=== PATIENT | male | born 1955 | race Caucasian/White ===

== ENCOUNTER 2018-09-03 01:36 | Outpatient (CLI) | payer BC, SELFPAY ==
[2018-09-03 10:47] LABS: ALT 22 U/L (12-78); AST 19 U/L (15-37); Albumin 3.8 g/dL (3.4-5.0); Alkaline Phosphatase 139 U/L (46-116); Anion Gap 8.8 mmol/L (3-11); BUN 15 mg/dL (7-18); CO2 27.2 mmol/L (21.0-32.0); CREATININE 1.35 mg/dL (0.70-1.30); Calcium 8.8 mg/dL (8.5-10.1); Chloride 103 mmol/L (98-107); Cholesterol 188 mg/dL (50-200); Estimated GFR 53.04 (mL/min/1.73m2); Glucose 118 mg/dL (70-100); HDL Cholesterol 36 mg/dL (40-60); LDL CHOLESTEROL 120 mg/dL (<100); Potassium 4.5 mmol/L (3.5-5.1); Sodium 139 mmol/L (136-145); Total Protein 7.4 g/dL (6.4-8.2); Triglyceride 146 mg/dL (30-150)
[2018-09-04 11:42] LABS: Hemoglobin A1C 6.6 % (4.5-6.2)
== END 2018-09-03 01:56 ==
PROVIDERS: PCP Family Medicine; Visit Provider Family Medicine
DX: E78.5 Hyperlipidemia, unspecified (principal); R73.01 Impaired fasting glucose; Z00.00 Encounter for general adult medical examination without abnormal findings
CPT/HCPCS: 36415; 80053; 80061; 83721; 83036

== ENCOUNTER 2018-10-14 12:40 | Outpatient (CLI) | payer BC, SELFPAY ==
--- NOTE | 2018-10-14 12:30 | DIABASSESS_ITS ---
DESCRIPTION/ASSESSMENT: Mr. Jang presents for Medical Nutrition Therapy for diabetes. Food Guidelines - He has stopped drinking 7-8 sodas a day now drinking coke 0. He has sausage mcmuffin for breakfast, crackers and peanut butter between meals; steak and macaroni for supper last night. He could list vegetables he likes. He has never been a big eater. Denies being a sweet eater. BMI 25 Physical Activity - He enjoys golf and hunting; he rides his motorcycle in the summer, but does not have winter activity. 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 Medication - no medication at this time Risks/Related health history - he reports a history of TIAs that he fully recovered from. Coping - from living alone. Denies depression. INTERVENTION: Mr. Jang believes he has solved his diabetes problem by cutting out sugar. Encouraged early, intensive intervention for preventative results. Food Guidelines - Reviewed diabetes food guide focused on carbohydrate sources and vegetables. He does not read labels but encouraged him to consider carbohydrate rather than sugar. Physical Activity - discussed walking daily and he believes this is possible. Monitoring - discussed A1c and diagnosis of diabetes. Discussed his pre-diabetes condition for past 4 years and what changed. Random blood sugar today 122mg/dl 4 hours after breakfast. Discussed the significance of this and its relation to his food intake. ACTION PLAN: Mr. Jang will continue to avoid sugar sweetened beverages; increase vegetables to include a serving every day Walk as able daily until he is able to do activities he enjoys He knows to call with questions or concerns. Individual MNT __3__ units billed TIME IN: 1230 OUT: 1320 No DM group education series being offered at this time.
== END 2018-10-14 13:00 ==
PROVIDERS: PCP Family Medicine; Visit Provider Dietitian, Registered
DX: E11.9 Type 2 diabetes mellitus without complications (principal); Z71.3 Dietary counseling and surveillance
CPT/HCPCS: 97802

== ENCOUNTER 2018-12-10 03:55 | Outpatient (CLI) | payer BC, SELFPAY ==
[2018-12-10 10:42] LABS: Anion Gap 8.8 mmol/L (3-11); BUN 16 mg/dL (7-18); CO2 27.2 mmol/L (21.0-32.0); CREATININE 1.19 mg/dL (0.70-1.30); Calcium 8.8 mg/dL (8.5-10.1); Chloride 103 mmol/L (98-107); Glucose 120 mg/dL (70-100); Potassium 4.2 mmol/L (3.5-5.1); Sodium 139 mmol/L (136-145)
[2018-12-11 10:26] LABS: Hemoglobin A1C 6.4 % (4.5-6.2)
== END 2018-12-10 04:15 ==
PROVIDERS: PCP Family Medicine; Visit Provider Family Medicine
DX: E11.9 Type 2 diabetes mellitus without complications (principal)
CPT/HCPCS: 36415; 80048; 83036

== ENCOUNTER 2019-06-10 01:22 | Outpatient (CLI) | payer BC, SELFPAY ==
[2019-06-10 09:48] LABS: HCT 46.8 % (40.0-50.0); HGB 14.9 g/dL (13.5-17.5); Mean Corp. HGB Concentration 31.8 g/dL (32.0-36.0); Mean Corpuscular Hemoglobin 28.9 pg (27.0-33.0); Mean Corpuscular Volume 90.7 fL (80-95); Mean Platelet Volume 10.3 fL (8.0-11.0); Platelet Count 206 x1000/uL (130-400); RBC 5.16 m/cumm (4.50-6.00); RBC Distribution Width 13.8 % (11.8-14.1); White Blood Cell Count 5.46 k/cumm (4.4-10.8)
[2019-06-10 11:18] LABS: ALT 29 U/L (16-63); AST 13 U/L (15-37); Albumin 3.9 g/dL (3.4-5.0); Alkaline Phosphatase 90 U/L (46-116); Anion Gap 8.8 mmol/L (3-11); BUN 21 mg/dL (7-18); Bilirubin, Total 0.6 mg/dL (0.2-1.0); CO2 28.2 mmol/L (21.0-32.0); CREATININE 1.32 mg/dL (0.70-1.30); Calcium 8.8 mg/dL (8.5-10.1); Calculated LDL 103 mg/dL; Chloride 105 mmol/L (98-107); Cholesterol 156 mg/dL (<200); Estimated GFR 54.43 (mL/min/1.73m2); Glucose 100 mg/dL (74-106); HDL Cholesterol 39 mg/dL (40-60); Potassium 4.5 mmol/L (3.5-5.1); Sodium 142 mmol/L (136-145); Total Protein 7.1 g/dL (6.4-8.2); Triglyceride 70 mg/dL (<150)
[2019-06-11 09:23] LABS: Hemoglobin A1C 6.3 % (4.5-6.2)
== END 2019-06-10 01:42 ==
PROVIDERS: PCP Family Medicine; Visit Provider Family Medicine
DX: E78.5 Hyperlipidemia, unspecified (principal); E11.9 Type 2 diabetes mellitus without complications; G45.9 Transient cerebral ischemic attack, unspecified
CPT/HCPCS: 36415; 80053; 80061; 85027; 83036

== ENCOUNTER 2019-07-21 01:56 | Outpatient (CLI) | payer BC, SELFPAY ==
--- NOTE | 2019-07-21 13:45 | DI.US_ITS ---
APPROVED REPORT EXAM: Comprehensive 2D, Doppler, and color-flow Echocardiogram Patient Location: Out-Patient Physical Therapy Nurse: Jes Chacon RDCS (AE) Indications: Aortic Stenosis Conclusion Left Ventricle : The left ventricle is normal size. The left ventricular systolic function is normal . There is normal left ventricular wall thickness. There is normal LV segmental wall motion. The le ft ventricular diastolic function is normal. LVEF is 50-54%. Right Ventricle : The right ventricular systolic function is normal. The right ventricle is normal si ze. Atria : The left atrium size is normal. The right atrium size is normal. Aortic Valve : Aortic valve is calcified. Aortic valve is trileaflet. Mild aortic regurgitation. Mild aortic stenosis (mean gradient is 11mmHg). Mitral Valve : The mitral valve is normal in structure. There is mitral annular calcification. Trace mitral regurgitation. No evidence of mitral valve stenosis. Tricuspid Valve : The tricuspid valve is normal in structure. Mild tricuspid regurgitation. There is no tricuspid valve stenosis. Pulmonic Valve : Pulmonic valve is not well visualized. Great Vessels : The aortic root size is normal. Descending aorta is not well visualized. Aortic arch is not well visualized. The IVC is normal in size and collapses >50% with inspiration. Estimated RVSP is 19-22 mmHg. Compared to echocardiogram dated 07/09/2017: The patient's ejection fraction has decreased slightly but is still within the normal range. Wall motion Left Ventricle The left ventricle is normal size. The left ventricular systolic function is normal. There is normal left ventricular wall thickness. There is normal LV segmental wall motion. The left ventricular diast olic function is normal. LVEF is 50-54%. Right Ventricle The right ventricle is normal size. The right ventricular systolic function is normal. Atria The left atrium size is normal. The right atrium size is normal. Aortic Valve Aortic valve is calcified. Aortic valve is trileaflet. Mild aortic stenosis (mean gradient is 11 mmHg ). Mild aortic regurgitation. Mitral Valve The mitral valve is normal in structure. There is mitral annular calcification. No evidence of mitral valve stenosis. Trace mitral regurgitation. Tricuspid Valve The tricuspid valve is normal in structure. There is no tricuspid valve stenosis. Mild tricuspid regu rgitation. Pulmonic Valve Pulmonic valve is not well visualized. There is no pulmonic valvular stenosis. There is no pulmonic v alvular regurgitation. Great Vessels The aortic root size is normal. Descending aorta is not well visualized. Aortic arch is not well visu alized. The IVC is normal in size and collapses >50% with inspiration. Estimated RVSP is 19-22 mmHg. Pericardium There is no pericardial effusion. There is no pleural effusion. 2D Dimensions IVSd 0.80 cm M: 0.6-1.2 LV EDV A2C 41.4 mL PWd 0.85 cm M: 0.6 - 1.2 LV EDV A4C 84.3 mL LVDd 4.65 cm M: 4.2 - 5.8 LA Volume Index Biplane 36.2 mL/m2 LVDs 2.85 cm M: 2.5 - 4.0 LA Area A4C 20.02 cm2 Aortic Root 3.50 cm M: 3.1 - 3.7 LA Area A2C 23.13 cm2 Left Atrium 3.29 cm M: 3.0 - 4.0 LA/Aortic Root Ratio 1.07 RA Area A4C 19.65 cm2 EF AP4 54.4 % LVOT 1.85 cm (M/F) 1.5-2.5 EF AP2 22.1 % LVEF (Teich) 69.5 % EF BP 51.6 % LVEF (Villareal's) 51.61 % M: 52 - 72 IVC 1.91 cm LV Volume 56.80 mL M: 62 - 150 LV Volume Index 29.27 mL/m2 M: 34 - 74 FS 39.05 % LV Diastology E Decel Time 242.00 (160-240 msec) E/A Ratio 1.4 MV E' medial 0.080 (>0.07 m/s) LV E/e MED 7.40 (<14) MV E' lateral 0.085 (>0.1 m/s) LV E/e LAT 7.00 (<14) Aortic Valve LVOT Area 2.77 cm2 LVOT Vmax 1.07 m/s LVOT Mean Ray. 0.65 m/s LVOT Peak Gr. 4.6 mmHg AoV Area Vmax 1.37 cm2 LVOT Mean Gr. 2.1 mmHg AoV Area/ BSA (Vmax) 0.70 cm2/m2 LVOT VTI 0.251 m AoV Vmax 2.17 (0.5-1.3 m/s) ASHER Mean Ray. Index 0.57 cm2/m2 AoV Mean Ray. 1.61 m/s AoV Peak Grad 18.9 mmHg LVOT SV 69.59 mL AoV Mean Grad 11.3 (<5 mmHg) AoV VTI 0.569 (0.18-0.25 m) AV Regurg Decel. 3106 msec AoV Area VTI 1.22 (2.5-4.5 cm2) AoV Area/ BSA (VTI) 0.63 cm/m2 Mitral Valve MV E Max Ray. 0.68 (0.4-1.3 m/s) MV A Velocity 0.48 (0.4-1.3 m/s) E/A Ratio 1.41 MV Decel. Time 242 (160-240 msec) MV PHT 70 msec MVA PHT 3.10 cm2 Tricuspid Valve TV Regurg Vmax 2.21 m/s RAP Estimate 3.00 mmHg TR P. Gradient 19.5 mmHg RVSP 22.6 mmHg
== END 2019-07-21 02:16 ==
PROVIDERS: PCP Family Medicine; Visit Provider Family Medicine
DX: I35.0 Nonrheumatic aortic (valve) stenosis (principal); R01.1 Cardiac murmur, unspecified; I34.0 Nonrheumatic mitral (valve) insufficiency
CPT/HCPCS: 93306

== ENCOUNTER 2020-10-04 04:10 | Outpatient (CLI) | payer BC, SELFPAY ==
--- NOTE | 2020-10-04 08:00 | DI.RAD_ITS ---
EXAM: XR FOOT LT COMPLETE CLINICAL HISTORY: left foot pain,M79.672 TECHNIQUE: COMPARISON: No exams were available for comparison FINDINGS: Three views were obtained. Bony alignment appears within normal limits. There is a tiny osteophyte of the site of attachment plantar fascia on the calcaneus. No significant findings involving the hin dfoot or midfoot region. There is marked loss of cartilaginous joint space of 1st MTP joint with prominent marginal osteophyte s, subchondral sclerosis, and cyst formation of the adjacent bones. Minimal degenerative changes of IP joints also noted. 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 RADIATION DOSE DELIVERED: Total DLP
== END 2020-10-04 04:30 ==
PROVIDERS: PCP Family Medicine; Visit Provider Nurse Practitioner Family
DX: M19.072 Primary osteoarthritis, left ankle and foot (principal)
CPT/HCPCS: 73630

== ENCOUNTER 2020-10-12 16:56 | Outpatient (REF) | payer BC, SELFPAY ==
[2020-10-12 15:46] LABS: HCT 46.6 % (40.0-50.0); MCH 29.7 pg (27.0-33.0); MCHC 32.2 % (32.0-36.0); MCV 92.3 fL (80-95); MPV 10.8 fL (8.0-11.0); Platelet Count 226 10^3/uL (130-400); RBC 5.05 10^6/uL (4.36-5.78); RDW-SD 43.7 fL; WBC 4.94 10^3/uL (4.4-10.8)
[2020-10-12 16:03] LABS: ALT 27 U/L (16-63); AST 18 U/L (15-37); Albumin 4.1 g/dL (3.4-5.0); Alkaline Phosphatase 121 U/L (46-116); Anion Gap 10.5 mmol/L (3-11); BUN 20 mg/dL (7-18); Bilirubin, Total 0.9 mg/dL (0.2-1.0); CO2 25.5 mmol/L (21.0-32.0); CREATININE 1.5 mg/dL (0.70-1.30); Calcium 8.4 mg/dL (8.5-10.1); Calculated LDL 144 mg/dL (<100); Chloride 104 mmol/L (98-107); Cholesterol 216 mg/dL (<200); Estimated GFR 46.68 (mL/min/1.73m2); Glucose 104 mg/dL (74-106); HDL Cholesterol 39 mg/dL (40-60); Potassium 4.2 mmol/L (3.5-5.1); Sodium 140 mmol/L (136-145); Total Protein 7.6 g/dL (6.4-8.2); Triglyceride 165 mg/dL (<150)
[2020-10-14 10:25] LABS: PSA, Screening 0.4 ng/mL (0.0-4.5)
== END 2020-10-12 16:57 | disposition home or self-care (01) ==
LOC: LBN 16:56
PROVIDERS: PCP Nurse Practitioner Family; Visit Provider Nurse Practitioner Family
DX: Z00.00 Encounter for general adult medical examination without abnormal findings (principal); Z13.220 Encounter for screening for lipoid disorders; Z13.228 Encounter for screening for other metabolic disorders; Z12.5 Encounter for screening for malignant neoplasm of prostate
CPT/HCPCS: 80053; 80061; 84153; 85027

== ENCOUNTER 2022-02-19 14:39 | Outpatient (REF) | payer MEDICARE, SELFPAY ==
[2022-02-19 21:14] LABS: Cholesterol 310 mg/dL (<200); HDL Cholesterol 35 mg/dL (40-60); Triglyceride 421 mg/dL (<150)
[2022-02-19 21:31] LABS: LDL CHOLESTEROL 178 mg/dL (<100)
== END 2022-02-19 14:40 | disposition home or self-care (01) ==
LOC: LBN 14:39
PROVIDERS: PCP Nurse Practitioner Family; Visit Provider Physician Assistant
DX: E78.2 Mixed hyperlipidemia (principal); E11.9 Type 2 diabetes mellitus without complications
CPT/HCPCS: 80061; 83721

== ENCOUNTER 2022-08-20 13:04 | Outpatient (REF) | payer MEDICARE, SELFPAY ==
[2022-08-20 22:02] LABS: COMMENT (LAB VIEW ONLY) 109.16 mg/dL; Microalb ug/mg Crea 3.8 ug/mg Cr
== END 2022-08-20 13:05 | disposition home or self-care (01) ==
LOC: LBN 13:04
PROVIDERS: PCP Nurse Practitioner Family; Visit Provider Nurse Practitioner Family
DX: E11.9 Type 2 diabetes mellitus without complications (principal)
CPT/HCPCS: 82043; 82570

== ENCOUNTER 2023-05-11 12:02 | Outpatient (CLI) | payer MEDICARE, SELFPAY ==
--- NOTE | 2023-05-11 12:00 | RT.EKG_ITS ---
APPROVED REPORT Exam: Resting ECG Reason for Exam: Heartburn Patient Location: O HR:56 bpm ECG Measurements Heart Rate 56 AXIS MS 161 P -36 QRSd 94 QRS 8 QT 429 T 51 QTc 415 Conclusion Sinus rhythm...normal P axis, V-rate 50- 99 Normal Electrocardiogram
== END 2023-05-11 12:03 | disposition home or self-care (01) ==
LOC: DI.CM 12:03
PROVIDERS: PCP Nurse Practitioner Family; Visit Provider Nurse Practitioner Family
DX: R07.89 Other chest pain (principal)
CPT/HCPCS: 93010

== ENCOUNTER 2024-07-17 04:30 | Outpatient (CLI) | payer MEDICARE, SELFPAY ==
[2024-07-17 13:01] LABS: Anion Gap 9.8 mmol/L (3-11); BUN 11 mg/dL (7-18); CO2 29.2 mmol/L (21.0-32.0); CREATININE 1.5 mg/dL (0.70-1.30); Calcium 8.8 mg/dL (8.5-10.1); Calculated LDL 62 mg/dL (<100); Chloride 103 mmol/L (98-107); Cholesterol 130 mg/dL (<200); Estimated GFR 49.47 (mL/min/1.73m2); Glucose 102 mg/dL (74-106); HDL Cholesterol 39 mg/dL (40-60); Potassium 3.7 mmol/L (3.5-5.1); Sodium 142 mmol/L (136-145); Triglyceride 149 mg/dL (<150)
[2024-07-17 18:12] LABS: PSA, Screening 0.4 ng/mL (<=6.5)
== END 2024-07-17 04:31 | disposition home or self-care (01) ==
LOC: LOS 04:31
PROVIDERS: PCP Nurse Practitioner Family; Referring Provider Nurse Practitioner Family; Visit Provider Nurse Practitioner Family
DX: Z13.6 Encounter for screening for cardiovascular disorders (principal); Z13.1 Encounter for screening for diabetes mellitus; Z12.5 Encounter for screening for malignant neoplasm of prostate
CPT/HCPCS: 36415; 80048; 80061; 84153